=== PATIENT | female | born 1970 | race Caucasian/White ===

== ENCOUNTER 2021-12-09 18:06 | Emergency (ER) | payer OTHER, SELFPAY ==
[2021-12-09 18:25] VITALS: BP 140/80; PULSE 105; RESP 18; TEMP 36.9; O2SAT 99
--- NOTE | 2021-12-09 19:00 | ED.BACK ---
HPI - Back Pain/Injury General Chief Complaint: Urogenital-Female Stated Complaint: back pain from kidney stone Time Seen by Provider: 12/09/21 19:00 Source: patient, RN notes reviewed and old records reviewed Mode of arrival: ambulatory Limitations: no limitations History of Present Illness HPI Narrative: 51-year-old female who presents to [facility] with complaints of pain to her left flank area. Patient reports that she was just discharged on Tuesday from [facility]. where she spent 5 days in hospital due to urinary sepsis and kidney stone. Patient states she has a spot on her left kidney and also a stone, She reports that she is to see urology again on the for follow up. She received 15 tabs on the and she has been taking at times 2 tabs at a time she reports. Patient states that she called urology exchange and was told to go to urgent care. MD elicited complaint: back pain and other (kidney stone) Pertinent past history: kidney stones and other (recently treated for urosepsis) Related Data Home Medications Medication Instructions Recorded Confirmed amlodipine 5 mg tablet 5 tablet PO DAILY 12/09/21 12/09/21 aripiprazole 2 mg tablet 2 tablet PO DAILY 12/09/21 12/09/21 bupropion HCl 200 mg tablet,12 hr 200 tablet PO BID 12/09/21 12/09/21 sustained-release cefixime 400 mg capsule 400 cap PO 12/09/21 gabapentin 600 mg tablet 1,200 tablet PO TID 12/09/21 12/09/21 hydrocodone 5 mg-acetaminophen 325 5 - 325 tablet PO Q4-6H PRN Pain 12/09/21 12/09/21 mg tablet liraglutide 0.6 mg/0.1 mL (18 mg/3 0.6 ea subcut DAILY 12/09/21 12/09/21 mL) subcutaneous pen injector (Victoza 2-Messi) losartan 100 mg tablet 100 tablet PO DAILY 12/09/21 12/09/21 metformin 500 mg tablet 500 tablet PO BID 12/09/21 12/09/21 quetiapine 100 mg tablet 100 tablet PO DAILY 12/09/21 12/09/21 venlafaxine 75 mg capsule,extended 75 cap PO DAILY 12/09/21 12/09/21 release 24 hr Allergies Allergy/AdvReac Type Severity Reaction Status Date / Time No Known Allergies Allergy Verified 12/09/21 18:36 Review of Systems Review of Systems: CONSTITUTIONAL: Denies any present fever, chills, or sweats. EYES: Denies visual changes, redness, or discharge. ENT: Denies rhinorrhea, congestion, sore throat, or otalgia. CARDIOVASCULAR: Denies chest pain, palpitations, or edema . RESPIRATORY: Denies cough or dyspnea. GASTROINTESTINAL: left sided abdominal pain and left flank pain, no present nausea, vomiting, or diarrhea. GENITOURINARY: Denies dysuria or hematuria. SKIN: Denies rash or itching. MUSCULOSKELETAL: Positive left flank pain, joint pain, or myalgia. NEUROLOGIC: Denies headache, numbness, or weakness. PSYCHIATRIC: Positive anxiety or depression. [facility] Past Medical History Medical History (Updated 12/11/21 @ 20:47 by Marlen Maloney NP) Anxiety and depression Diabetes Hypertension Kidney stone Social History Social History (Updated 12/11/21 @ 20:47 by Marlen Maloney NP) Smoking status: Never smoker Living arrangements: with family Gender identity (if verbalized by the patient): Female Comments At time of signature, agree with nursing past medical, surgical, social and family history. There is no relevant family history pertinent to the presenting complaint Exam Narrative: GENERAL: Well-appearing, well-nourished, and in some acute distress related to discomfort HEAD: Normocephalic, atraumatic. EYES: PERRLA and EOMI. ENT: Nares clear, no rhinorrhea or epistaxis. Mucous membranes moist.TM's normal with good light reflex, throat pink with no lesions or exudates. NECK: Supple.no lymphadenopathy CHEST: Clear to auscultation. No respiratory distress.SAO2 99% on room air HEART: Regular rate and rhythm. No murmur heard. Normal peripheral pulses. ABDOMEN: Soft tender left side of abdomen and left flank region, nondistended, normal active bowel sounds. EXTREMITIES: Normal range of motion. No edema. SKIN: Warm, dry,
== END 2021-12-09 19:08 | disposition home or self-care (01) ==
PROVIDERS: Emergency Provider Registered Nurse; PCP Nurse Practitioner Family
DX: N20.0 Calculus of kidney (principal); E11.9 Type 2 diabetes mellitus without complications; I10 Essential (primary) hypertension; F41.9 Anxiety disorder, unspecified; F32.A Depression, unspecified
CPT/HCPCS: 99213; G0463

== ENCOUNTER 2022-02-22 18:03 | Emergency (ER) | payer OTHER, SELFPAY ==
[2022-02-22 18:06] VITALS: BP 142/107; PULSE 100; RESP 20; TEMP 36.6; O2SAT 100
--- NOTE | 2022-02-22 18:15 | ED.BACK ---
HPI - Back Pain/Injury General Chief Complaint: Back Pain/Injury Stated Complaint: Lower back pain down leg Time Seen by Provider: 02/22/22 18:15 Source: patient and RN notes reviewed History of Present Illness HPI Narrative: Patient is a 51-year-old female who presents the urgent care with complaints of low back pain rating down the right leg. Patient states that she was unable to sleep on her right side last night due to the spasms. Patient states she has had sciatica in the past but not this bad . Patient states that started yesterday after lifting and moving heavy furniture by herself. Patient has been using Tylenol without much relief. No other acute complaints. No acute distress noted. Patient aware of the plan of care. Some parts of this dictation were generated by voice recognition software and may contain typographical and/or grammatical inaccuracies. Related Data Home Medications Medication Instructions Recorded Confirmed amlodipine 5 mg tablet 5 tablet PO DAILY 12/09/21 02/22/22 aripiprazole 2 mg tablet 2 tablet PO DAILY 12/09/21 02/22/22 bupropion HCl 200 mg tablet,12 hr 200 tablet PO BID 12/09/21 02/22/22 sustained-release gabapentin 600 mg tablet 1,200 tablet PO TID 12/09/21 02/22/22 liraglutide 0.6 mg/0.1 mL (18 mg/3 0.6 ea subcut DAILY 12/09/21 02/22/22 mL) subcutaneous pen injector (Victoza 2-Messi) losartan 100 mg tablet 100 tablet PO DAILY 12/09/21 02/22/22 metformin 500 mg tablet 500 tablet PO BID 12/09/21 02/22/22 quetiapine 100 mg tablet 100 tablet PO DAILY 12/09/21 02/22/22 venlafaxine 75 mg capsule,extended 75 cap PO DAILY 12/09/21 02/22/22 release 24 hr Allergies Allergy/AdvReac Type Severity Reaction Status Date / Time No Known Allergies Allergy Verified 02/22/22 18:15 Review of Systems Review of Systems: CONSTITUTIONAL: Denies fever, chills, or sweats. EYES: Denies visual changes, redness, or discharge. ENT: Denies rhinorrhea, congestion, sore throat, or otalgia. CARDIOVASCULAR: Denies chest pain, palpitations, or edema. RESPIRATORY: Denies cough or dyspnea. GASTROINTESTINAL: Denies abdominal pain, nausea, vomiting, or diarrhea. GENITOURINARY: Denies dysuria or hematuria. SKIN: Denies rash or itching. MUSCULOSKELETAL: Reports of right-sided low back pain rating down the right leg NEUROLOGIC: Denies headache, numbness, or weakness. All other systems reviewed are negative, except as documented in HPI. [facility] Past Medical History Medical History (Updated 02/22/22 @ 18:23 by GOKUL Johns) Anxiety and depression Diabetes Hypertension Kidney stone Social History Social History (Updated 12/11/21 @ 20:47 by Marlen Maloney NP) Smoking status: Never smoker Gender identity (if verbalized by the patient): Female Comments At the time of my signature, I reviewed and agree with the nursing past medical, surgical, social, and family history. There is no relevant family history pertinent to the patient complaint. Exam Narrative: GENERAL: This is a well-nourished, well-developed patient, in no apparent distress. HEAD: normocephalic, atraumatic. EYES: PERRL. Sclera clear/white. Vision is grossly intact. EARS: External ears normal NOSE: External nose normal with no obvious nasal discharge, nares without redness, no rhinorrhea. THROAT: Mucous membranes moist NECK: Neck supple SKIN: warm, intact with no suspicious lesions or rash, good texture and turgor. NEURO: awake, alert, and oriented to person, place and time. There were no obvious focal neurologic abnormalities. EXTREMITIES: No clubbing, cyanosis, or edema. BACK: Mild right lumbar tenderness with positive right SLE Course Course Level of Care: Express Care Visit Vital Signs Vital signs: Vital Signs Temperature 97.8 F 02/22/22 18:06 Pulse Rate 100 02/22/22 18:06 Respiratory Rate 20 02/22/22 18:06 Blood Pressure 142/107 H 02/22/22 18:06 Pulse Oximetry 100 02/22/22 18:06 Oxygen Filibertoive
== END 2022-02-22 18:25 | disposition home or self-care (01) ==
PROVIDERS: Emergency Provider Nurse Practitioner Family; PCP Nurse Practitioner Family
DX: M54.31 Sciatica, right side (principal); E11.9 Type 2 diabetes mellitus without complications; I10 Essential (primary) hypertension; F41.9 Anxiety disorder, unspecified; F32.A Depression, unspecified
CPT/HCPCS: 99213; G0463

== ENCOUNTER 2022-04-24 15:01 | Emergency (ER) | payer OTHER, SELFPAY ==
[2022-04-24 16:05] VITALS: PULSE 109; RESP 20; TEMP 35.9; O2SAT 99
[2022-04-24 16:10] VITALS: BP 160/90
--- NOTE | 2022-04-24 17:39 | ED.DENTAL ---
HPI - Dental/Oral General Chief complaint: Dental/Oral Stated complaint: Toothache Time Seen by Provider: 04/24/22 17:20 Source: patient, RN notes reviewed and old records reviewed Mode of arrival: ambulatory Limitations: no limitations History of Present Illness HPI Narrative: 51-year-old female who presents to [facility] with complaints of dental pain with acute pain to her mouth. Patient has 3 teeth that are broken off, patient report top left #10 tooth broke off last night. Patient states that she is presently on Amoxicillin for her dental problems from her PCP but she ran out of pain medication , is tearful stating pain is severe and OTC Ibuprofen and Naprosyn not helping. Patient states she has dental appointment on July 06 and has appointment on Tuesday to see PCP. Patient denies any difficulty with her breathing or swallowing. MD Complaint: tooth pain Location: Tooth # (10,21,28 broken teeth) Severity scale (1-10): 10 Treatment prior to arrival: oral analgesic and other Related Data Home Medications Medication Instructions Recorded Confirmed amlodipine 5 mg tablet 5 tablet PO DAILY 12/09/21 04/24/22 aripiprazole 2 mg tablet 2 tablet PO DAILY 12/09/21 04/24/22 bupropion HCl 200 mg tablet,12 hr 200 tablet PO BID 12/09/21 04/24/22 sustained-release gabapentin 600 mg tablet 1,200 tablet PO TID 12/09/21 04/24/22 liraglutide 0.6 mg/0.1 mL (18 mg/3 0.6 ea subcut DAILY 12/09/21 04/24/22 mL) subcutaneous pen injector (Victoza 2-Messi) losartan 100 mg tablet 100 tablet PO DAILY 12/09/21 04/24/22 metformin 500 mg tablet 500 tablet PO BID 12/09/21 04/24/22 quetiapine 100 mg tablet 100 tablet PO DAILY 12/09/21 04/24/22 venlafaxine 75 mg capsule,extended 75 cap PO DAILY 12/09/21 04/24/22 release 24 hr Allergies Allergy/AdvReac Type Severity Reaction Status Date / Time No Known Allergies Allergy Verified 04/24/22 16:47 Review of Systems Review of Systems: CONSTITUTIONAL: Denies fever, chills, or sweats. ENT: Denies rhinorrhea, congestion, sore throat, or otalgia. Reports dental pain to 3 teeth which are broken off in mouth CARDIOVASCULAR: Denies chest pain, palpitations, or edema. RESPIRATORY: Denies cough or dyspnea. SKIN: Denies rash or itching. MUSCULOSKELETAL: Denies myalgia. NEUROLOGIC: Denies headache All systems reviewed & are unremarkable except as noted in HPI and below PMFSH Past Medical History Medical History (Updated 05/01/22 @ 09:45 by Marlen Maloney NP) Anxiety and depression Diabetes History of dental problems Hypertension Kidney stone Social History Social History Smoking status: Never smoker Gender identity (if verbalized by the patient): Female Comments At time of signature, agree with nursing past medical, surgical, social and family history. There is no relevant family history pertinent to the presenting complaint Exam Narrative: GENERAL: Well-appearing, well-nourished, and in some acute distress related to pain,patient is tearful HEAD: Normocephalic, atraumatic.l EYES: PERRLA and EOMI. ENT: Nares clear, no rhinorrhea or epistaxis. Mucous membranes moist. Missing teeth, broken teeth, caries broken teeth 10,21,28 no abscess noted, no Michael angina or trismus NECK: Supple.no lymphadenopathy CHEST: Clear to auscultation. No respiratory distress. SAO2 99% on room air HEART: Regular rate and rhythm. No murmur heard. Normal peripheral pulses. SKIN: Warm, dry, no rash. NEURO: No focal deficits. Alert and oriented x3. Course Course Emergency Course: Patient is aware of diagnosis, understands and agrees to treatment plan. Anticipatory guidance given. Patient agrees to follow-up as directed and is aware of reasons to seek care at the emergency department. Portions of this record may have been created with voice recognition software Level of Care: Express Care Visit Vital Signs Vital signs: Vital Signs Temperat
== END 2022-04-24 18:00 | disposition home or self-care (01) ==
PROVIDERS: Emergency Provider Registered Nurse; PCP Nurse Practitioner Family
DX: K08.89 Other specified disorders of teeth and supporting structures (principal); E11.9 Type 2 diabetes mellitus without complications; I10 Essential (primary) hypertension; F41.9 Anxiety disorder, unspecified; F32.A Depression, unspecified
CPT/HCPCS: 99213; G0463